=== PATIENT | female | born 2000 | race Caucasian/White ===

== ENCOUNTER 2020-10-21 13:58 | Inpatient (IN) ==
[2020-10-21] MEDS: Betamethasone Acet/SodPhos 30 MG/5 ML VIAL IM SCH (11:11)
[2020-10-21] MEDS: Ampicillin 2 GM in 0.9 % Sodium Chloride Mini Bag 100 ML IVPB SCH ×3 (11:28→23:56)
[2020-10-21] MEDS: Ringers Solution, Lactated 1,000 ML IVC SCH (11:28)
[2020-10-21 11:48] LABS: Basophils % 0.3 %; Eosinophils # 0.2 K/mcL (0.0-0.6); Eosinophils % 1.5 %; Hematocrit 38.8 % (35.3-44.9); Hemoglobin 12.7 g/dL (11.5-15.4); Immature Granulocytes % 0.4 % (0-4); Lymphocytes # 2.3 K/mcL (0.6-4.6); Lymphocytes % 18.4 %; Mean Corpuscular HGB Conc 32.7 g/dL (31.6-35.5); Mean Corpuscular Volume 91.7 fL (83.0-100.0); Mean Platelet Volume 9.5 fL (9.4-12.4); Monocytes # 0.7 K/mcL (0.0-1.3); Monocytes % 5.9 %; Neutrophils # 9.1 K/mcL (1.6-8.9); Platelet Count 299 K/mcL (140-400); Red Blood Count 4.23 M/mcL (3.82-4.97); Red Cell Distribution Width 12.1 % (11.5-14.5); Segmented Neutrophils % 73.5 %; White Blood Count 12.4 K/mcL (4.3-11.1)
[~2020-10-21 13:58] MED LIST: Azithromycin 250 MG TABLET PO ONE; Famotidine 20 MG/2 ML VIAL IVP PRN; Metoclopramide 10 MG/2 ML VIAL IVP PRN; Naloxone 0.4 MG/ML INJ IVP PRN; Ondansetron 4 MG/2 ML VIAL IVP PRN; Penicillin G Potassium 2,500,000 UNIT/105 ML MLS IVPB SCH; Penicillin G Potassium 5,000,000 UNIT in 0.9 % Sodium Chloride Mini Bag 100 ML IVPB ONE
[2020-10-22] MEDS: Ampicillin 2 GM in 0.9 % Sodium Chloride Mini Bag 100 ML IVPB SCH ×3 (06:10→18:55)
[2020-10-22] MEDS ORDERED: Acetaminophen 325 MG TABLET PO ONE (06:16)
[2020-10-22] MEDS ORDERED: Azithromycin 500 MG in 0.9 % Sodium Chloride 250 ML IVPB ONE (10:10)
[2020-10-22] MEDS: Betamethasone Acet/SodPhos 30 MG/5 ML VIAL IM SCH (11:22)
[2020-10-22] MEDS: Ringers Solution, Lactated 1,000 ML IVC SCH (15:23)
[2020-10-22 16:50] LABS: Amphetamine Screen,Urine Negative ng/mL (Cutoff=1000); Barbiturate Screen,Urine Negative ng/mL (Cutoff=200); Benzodiazepines Screen,Urine Negative ng/mL (Cutoff=200); Cannabinoid Screen,Urine Negative ng/mL (Cutoff = 50); Cocaine Screen,Urine Negative ng/mL (Cutoff= 300); Opiate Screen,Urine Negative ng/mL (Cutoff=300); Phencyclidine Screen,Urine Negative ng/mL (Cutoff=25)
[2020-10-23] MEDS ORDERED: Acetaminophen 325 MG TABLET PO ONE ×2 (01:11→22:05)
[2020-10-23] MEDS: Ampicillin 2 GM in 0.9 % Sodium Chloride Mini Bag 100 ML IVPB SCH ×2 (01:21→07:46)
[2020-10-23] MEDS ORDERED: Amoxicillin 250 MG CHEWABLE TABLET PO SCH (12:00)
[2020-10-23] MEDS ORDERED: Azithromycin 250 MG TABLET PO SCH (12:00)
[2020-10-24] MEDS: Amoxicillin 250 MG CHEWABLE TABLET PO SCH ×2 (04:14→16:57)
[2020-10-24] MEDS ORDERED: Azithromycin 250 MG TABLET PO SCH (09:00)
[2020-10-24] MEDS ORDERED: Prenatal Vit/FA 1 EACH TABLET PO SCH (09:00)
[2020-10-25] MEDS ORDERED: Amoxicillin 250 MG CHEWABLE TABLET PO SCH
[2020-10-25] MEDS ORDERED: Penicillin G Potassium 5,000,000 UNIT in 0.9 % Sodium Chloride Mini Bag 100 ML IVPB ONE (00:41)
[2020-10-25] MEDS ORDERED: Ringers Solution, Lactated 1,000 ML ONE (01:06)
[2020-10-25] MEDS ORDERED: Morphine Sulfate 2 MG/ML SYRINGE IVP ONE (02:22)
[2020-10-25] MEDS ORDERED: *HR* FentaNYL (PF) 100 MCG/2 ML VIAL EP ONE (04:45)
[2020-10-25] MEDS ORDERED: EPHEDrine 50 MG/ML VIAL IVP PRN (04:45)
[2020-10-25] MEDS ORDERED: Epidural Premix (fent/bupiv) 110 ML EP SCH (04:45)
[2020-10-25] MEDS ORDERED: Ropivacaine/PF 0.2% 20 ML VIAL EP ONE (04:45)
[2020-10-25] MEDS ORDERED: Penicillin G Potassium 2,500,000 UNIT/105 ML MLS IVPB SCH (05:00)
[2020-10-25 05:13] LABS: Basophils % 0.3 %; Eosinophils % 0.1 %; Hemoglobin 13.4 g/dL (11.5-15.4)
[2020-10-25 05:15] LABS: Basophils # 0.1 K/mcL (0.0-0.2); Hematocrit 39.5 % (35.3-44.9); Lymphocytes % 10.7 %; Mean Corpuscular HGB Conc 33.9 g/dL (31.6-35.5); Mean Corpuscular Hemoglobin 30.7 pg (28.0-33.3); Mean Corpuscular Volume 90.4 fL (83.0-100.0); Mean Platelet Volume 9.9 fL (9.4-12.4); Monocytes # 1.9 K/mcL (0.0-1.3); Monocytes % 6.4 %; Neutrophils # 23.9 K/mcL (1.6-8.9); Platelet Count 309 K/mcL (140-400); Red Blood Count 4.37 M/mcL (3.82-4.97); Segmented Neutrophils % 81.5 %; White Blood Count 29.3 K/mcL (4.3-11.1)
[2020-10-25 05:16] LABS: Lymphocytes # 3.1 K/mcL (0.6-4.6)
[2020-10-25] MEDS ORDERED: Oxytocin 20 units/ LR 1000 mL 20 UNIT/1,000 ML BAG IVC SCH ×2 (06:00→07:59)
[2020-10-25] MEDS ORDERED: *HR* FentaNYL (PF) 100 MCG/2 ML VIAL IVP PRN (06:03)
[2020-10-25] MEDS ORDERED: BUTORPHANOL 2 MG/ML IVP ONE (06:09)
[2020-10-25] MEDS ORDERED: *HR* Promethazine 25 MG/ML VIAL IM ONE (06:10)
[2020-10-25] MEDS ORDERED: Gentamicin 120 MG in 0.9 % Sodium Chloride 100 ML IVPB SCH (07:00)
[2020-10-25] MEDS ORDERED: Lanolin 7 G OINT...G. TP PRN (07:59)
[2020-10-25] MEDS ORDERED: *HR* HYDROcodone/Acet 5/325 mg TABLET PO PRN (07:59)
[2020-10-25] MEDS ORDERED: Acetaminophen 325 MG TABLET PO PRN (07:59)
[2020-10-25] MEDS ORDERED: Benzocaine/Menthol 56 GM AEROSOL SPRAY TP PRN (07:59)
[2020-10-25] MEDS ORDERED: Clindamycin 900 MG/50 ML 900 MG/50 ML IV.SOLN IVPB SCH (08:00)
[2020-10-25] MEDS: Clindamycin 900 MG/50 ML 900 MG/50 ML IV.SOLN IVPB SCH ×2 (08:17→16:35)
[2020-10-25] MEDS ORDERED: Ondansetron ODT 4 MG TAB.RAPDIS SL PRN (08:29)
[2020-10-25] MEDS: Prenatal Vit/FA 1 EACH TABLET PO SCH (11:18)
[2020-10-25] MEDS ORDERED: Ampicillin 2 GM in 0.9 % Sodium Chloride Mini Bag 100 ML IVPB SCH (12:00)
[2020-10-25] MEDS ORDERED: miSOPROStoL 100 MCG TABLET RC ONE (12:32)
[2020-10-25] MEDS: Ampicillin 2 GM in 0.9 % Sodium Chloride Mini Bag 100 ML IVPB SCH ×3 (12:39→23:49)
[2020-10-25] MEDS: Ibuprofen 600 MG TABLET PO PRN ×2 (12:47→23:48)
[2020-10-25] MEDS: Gentamicin 120 MG in 0.9 % Sodium Chloride 100 ML IVPB SCH ×2 (13:34→21:54)
[2020-10-25 15:39] LABS: BUN/Creatinine Ratio 15 (6-26); Blood Urea Nitrogen 11 mg/dL (6-20); eGFR For African Americans > 60 (> 60); eGFR For Non-African Americans > 60 (> 60)
[2020-10-25] MEDS ORDERED: 0.9 % Sodium Chloride 500 ML ONE (21:19)
[2020-10-26] MEDS: Clindamycin 900 MG/50 ML 900 MG/50 ML IV.SOLN IVPB SCH ×2 (00:49→08:46)
[2020-10-26 05:34] LABS: BUN/Creatinine Ratio 18 (6-26); Blood Urea Nitrogen 13 mg/dL (6-20); eGFR For African Americans > 60 (> 60); eGFR For Non-African Americans > 60 (> 60)
[2020-10-26] MEDS: Gentamicin 120 MG in 0.9 % Sodium Chloride 100 ML IVPB SCH (05:45)
[2020-10-26] MEDS: Ampicillin 2 GM in 0.9 % Sodium Chloride Mini Bag 100 ML IVPB SCH (06:59)
[2020-10-26 07:41] LABS: Basophils # 0.1 K/mcL (0.0-0.2); Basophils % 0.2 %; Eosinophils # 0.1 K/mcL (0.0-0.6); Eosinophils % 0.5 %; Hematocrit 27.2 % (35.3-44.9); Hemoglobin 8.8 g/dL (11.5-15.4); Immature Granulocytes % 1.1 % (0-4); Lymphocytes # 3.9 K/mcL (0.6-4.6); Lymphocytes % 17.4 %; Mean Corpuscular HGB Conc 32.4 g/dL (31.6-35.5); Mean Corpuscular Hemoglobin 29.9 pg (28.0-33.3); Mean Corpuscular Volume 92.5 fL (83.0-100.0); Mean Platelet Volume 9.6 fL (9.4-12.4); Monocytes # 1.3 K/mcL (0.0-1.3); Monocytes % 5.7 %; Neutrophils # 16.8 K/mcL (1.6-8.9); Platelet Count 251 K/mcL (140-400); Red Blood Count 2.94 M/mcL (3.82-4.97); Red Cell Distribution Width 12.2 % (11.5-14.5); Segmented Neutrophils % 75.1 %; White Blood Count 22.4 K/mcL (4.3-11.1)
[2020-10-26] MEDS: Prenatal Vit/FA 1 EACH TABLET PO SCH (08:47)
[2020-10-26] MEDS: Ibuprofen 600 MG TABLET PO PRN (13:28)
[2020-10-26] MEDS: cephALEXin 500 MG CAPSULE PO SCH ×2 (17:15→21:46)
[2020-10-27 05:36] LABS: Basophils % 0.2 %; Eosinophils # 0.3 K/mcL (0.0-0.6); Eosinophils % 1.4 %; Hematocrit 29.1 % (35.3-44.9); Hemoglobin 9.6 g/dL (11.5-15.4); Immature Granulocytes % 1.1 % (0-4); Lymphocytes # 2.7 K/mcL (0.6-4.6); Lymphocytes % 15.7 %; Mean Corpuscular Hemoglobin 30.7 pg (28.0-33.3); Mean Platelet Volume 9.7 fL (9.4-12.4); Monocytes # 1.2 K/mcL (0.0-1.3); Monocytes % 6.8 %; Platelet Count 300 K/mcL (140-400); Red Blood Count 3.13 M/mcL (3.82-4.97); Red Cell Distribution Width 12.5 % (11.5-14.5); Segmented Neutrophils % 74.8 %; White Blood Count 17.4 K/mcL (4.3-11.1)
[2020-10-27] MEDS: Ibuprofen 600 MG TABLET PO PRN (07:45)
[2020-10-27] MEDS: cephALEXin 500 MG CAPSULE PO SCH (07:45)
[2020-10-27] MEDS: Prenatal Vit/FA 1 EACH TABLET PO SCH (07:45)
[2020-10-27 08:18] VITALS: BP 115/69
== END 2020-10-27 16:55 | disposition home or self-care (01) | DRG 796 ==
LOC: 1NENULAB → 1NENUOBS 10-23 22:02 → 1NENULAB 10-25 00:43 → 1NENUOBS 10-25 07:38
PROVIDERS: ADMIT Obstetrics & Gynecology; ATTEND Obstetrics & Gynecology